=== PATIENT | male | born 1945 | race Caucasian/White ===

== ENCOUNTER 2023-02-16 12:28 | Outpatient (CLI) | payer MEDICARE | END 2023-02-16 12:29 | disposition home or self-care (01) | LOC: CSHRAD 12:28 | PROVIDERS: ATTEND Internal Medicine Cardiovascular Disease | DX: R06.02 Shortness of breath (principal); R06.00 Dyspnea, unspecified | CPT/HCPCS: 71046 ==

== ENCOUNTER 2024-12-16 19:35 | Emergency (ER) | payer MEDICARE, OTHER ==
[2024-12-16 20:22] LABS: Glucose, Urine (Dipstick) >=1000 mg/dL (Negative); Leukocyte 500 (Negative); Protein, Urine (Dipstick) 30 mg/dl (Neg-Trace); Specific Gravity, Urine 1.020 (1.005-1.030)
[2024-12-16 20:31] LABS: RBC/HPF 0-3 HPF (0-3)
[2024-12-16 20:32] LABS: Bacteria/HPF 4+ HPF (None Seen); CAUTI Indications for Culture Dysuria,urgency,freq; WBC/HPF Greater Than 50 HPF (0-3)
[2024-12-16 20:33] LABS: Urine Culture Reflex Yes Yes
[2024-12-16] MEDS ORDERED: Cefdinir 300 MG CAP ONE (21:27)
== END 2024-12-16 21:21 | disposition home or self-care (01) ==
LOC: CSHERS 19:35
DX: N39.0 Urinary tract infection, site not specified (principal)
CPT/HCPCS: 81001; 87077; 87086; 99283